=== PATIENT | female | born 1995 | race Caucasian/White ===

== ENCOUNTER 2021-12-29 16:40 | Emergency (ER) | payer OTHER ==
[~2021-12-29] VITALS: Ht 172.7 cm; Wt 65.9 kg
[2021-12-29] MEDS ORDERED: IBUPROFEN 600 MG TABLET PO ONE (20:30)
[2021-12-29 22:12] VITALS: BP 166/90
== END 2021-12-29 22:19 | disposition home or self-care (01) ==
LOC: EMS 16:40
DX: S30.0XXA Contusion of lower back and pelvis, initial encounter (principal); W01.0XXA Fall on same level from slipping, tripping and stumbling without subsequent striking against object, initial encounter; Y93.89 Activity, other specified; Y92.511 Restaurant or cafe as the place of occurrence of the external cause; Y99.0 Civilian activity done for income or pay
CPT/HCPCS: 72170; 99283

== ENCOUNTER 2021-12-31 16:25 | Emergency (ER) | payer OTHER ==
[~2021-12-31] VITALS: Ht 172.7 cm; Wt 65.9 kg
[2021-12-31] MEDS ORDERED: IBUP-1506 PO (16:29)
[2021-12-31] MEDS ORDERED: KETOROLAC TROMETHAMINE 30 MG/ML VIAL IVP ONE (17:15)
[2021-12-31] MEDS ORDERED: HYDROCODONE/ACETAMINOPHEN 5-325 MG TABLET PO ONE (17:15)
[2021-12-31] MEDS ORDERED: METHOCARBAMOL 100 MG/ML 10 ML VIAL IVP ONE (17:15)
[2021-12-31 18:28] VITALS: BP 132/77
[2021-12-31] MEDS ORDERED: IBUP-1554 PO (18:53)
[2021-12-31] MEDS ORDERED: BACL10TA PO (18:53)
[2021-12-31] MEDS ORDERED: HYDR-4723 PO (18:53)
== END 2021-12-31 19:10 | disposition home or self-care (01) ==
LOC: EMS 16:26
DX: S39.012A Strain of muscle, fascia and tendon of lower back, initial encounter (principal); S30.0XXA Contusion of lower back and pelvis, initial encounter; W01.0XXA Fall on same level from slipping, tripping and stumbling without subsequent striking against object, initial encounter; Y93.89 Activity, other specified; Y92.89 Other specified places as the place of occurrence of the external cause; Y99.0 Civilian activity done for income or pay
CPT/HCPCS: 72100; 81025; 96374; 96375; 99284; J1885; J2800

== ENCOUNTER 2022-05-22 19:43 | Emergency (ER) | payer OTHER ==
[~2022-05-22] VITALS: Ht 172.7 cm; Wt 63.6 kg
[~2022-05-22 19:43] MED LIST: BACL10TA PO; HYDR-4723 PO; IBUP-1506 PO; IBUP-1554 PO
[2022-05-22] MEDS ORDERED: GuaiFENesin/D-METHORPHAN [SUGAR-FREE] 200-20MG/10 ML SYRUP UDCUP PO ONE (20:30)
[2022-05-22] MEDS ORDERED: DIPHENOXYLATE/ATROP 2.5-0.025 MG TABLET PO ONE (20:30)
[2022-05-22] MEDS ORDERED: ACETAMINOPHEN 500 MG TABLET PO ONE (20:30)
[2022-05-22] MEDS ORDERED: ONDANSETRON HCL 4 MG TABLET PO ONE (20:30)
[2022-05-22 20:43] LABS: COVID AG,FIA SOURCE NASOPHARYNGEAL
[2022-05-22 21:04] LABS: INFLUENZA TYPE A NEGATIVE FOR TYPE A (NEGATIVE); INFLUENZA TYPE B NEGATIVE FOR TYPE B (NEGATIVE)
[2022-05-22 21:49] VITALS: BP 135/80
[2022-05-22] MEDS ORDERED: GUAIFDM PO (21:50)
[2022-05-22] MEDS ORDERED: ACET-66 PO (21:50)
[2022-05-22] MEDS ORDERED: ONDA-104 PO (21:51)
[2022-05-22] MEDS ORDERED: DIPH-654 PO (21:51)
== END 2022-05-22 22:03 | disposition home or self-care (01) ==
LOC: EMS 19:46
DX: J06.9 Acute upper respiratory infection, unspecified (principal); K52.9 Noninfective gastroenteritis and colitis, unspecified; Z98.890 Other specified postprocedural states; Z20.822 Contact with and (suspected) exposure to COVID-19
CPT/HCPCS: 99284; 87426; 87804; Q0162

== ENCOUNTER 2023-02-13 07:32 | Emergency (ER) | payer OTHER ==
[~2023-02-13] VITALS: Ht 172.7 cm; Wt 65.9 kg
[~2023-02-13 07:32] MED LIST changes: +ACET-66 PO; -BACL10TA PO; +DIPH-654 PO; +GUAIFDM PO; -HYDR-4723 PO; -IBUP-1506 PO; -IBUP-1554 PO; +ONDA-104 PO
[2023-02-13 07:35] VITALS: TEMP 98.4
[2023-02-13] MEDS ORDERED: METOCLOPRAMIDE HCL 5 MG/ML 2 ML VIAL IVP ONE (08:00)
[2023-02-13] MEDS ORDERED: SODIUM CHLORIDE 0.9% 1,000 ML IV ONE (08:00)
[2023-02-13 08:12] LABS: BASOPHILS % (AUTO) 0.9 % (0.0-2.0); EOSINOPHILS % (AUTO) 4.1 % (1.0-6.0); HEMATOCRIT 35.7 % (36-46); HEMOGLOBIN 11.7 g/dL (12.0-16.0); LYMPHOCYTES # (AUTO) 1.4 K/uL (1.0-4.8); LYMPHOCYTES % (AUTO) 26.7 % (22.0-44.0); MEAN CORPUSCULAR HEMOGLOBIN 24.6 pg (26.0-34.0); MEAN CORPUSCULAR HGB CONC 32.9 G/dL (31.0-37.0); MEAN CORPUSCULAR VOLUME 75 fL (80-100); MONOCYTES # (AUTO) 0.4 K/uL (0.1-1.0); MONOCYTES % (AUTO) 7.9 % (2.0-9.0); NEUTROPHILS # (AUTO) 3.1 K/uL (1.8-7.7); NEUTROPHILS % (AUTO) 60.4 % (40.0-70.0); PLATELET COUNT (AUTO) 228 K/uL (150-450); RED BLOOD CELL COUNT(AUTO) 4.77 MIL/uL (4.00-5.20); RED CELL DISTRIBUTION WIDTH 15.2 % (11.5-14.5)
[2023-02-13 08:17] LABS: ANION GAP 13 mmol/L (8-16); CALCIUM, TOTAL 9.2 mg/dL (8.8-10.5); CARBON DIOXIDE 23 mmol/L (22-29); CHLORIDE 102 mmol/L (98-107); CREATININE 0.33 mg/dL (0.60-1.30); GLOMERULAR FILTR. RATE CALC > 60 mL/min (>60); GLUCOSE,RANDOM 111 mg/dL (70-110); POTASSIUM 3.6 mmol/L (3.5-5.1); SODIUM SERUM 138 mmol/L (136-145)
[2023-02-13 08:23] LABS: ALANINE AMINOTRANSFERASE 30 U/L (12-78); ALBUMIN 3.5 g/dL (3.4-5.0); ALKALINE PHOSPHATASE 150 U/L (46-116); ASPARTATE AMINOTRANSFERASE 21 U/L (15-37); BILIRUBIN,TOTAL 0.4 mg/dL (0.1-1.0); TOTAL PROTEIN, SERUM 8.1 g/dL (6.4-8.2)
[2023-02-13] MEDS ORDERED: KETOROLAC TROMETHAMINE 30 MG/ML VIAL IVP ONE (09:45)
[2023-02-13 10:53] VITALS: BP 132/78; PULSE 91; RESP 18
== END 2023-02-13 10:51 | disposition home or self-care (01) ==
LOC: EMS 07:34
DX: K52.9 Noninfective gastroenteritis and colitis, unspecified (principal); R51.9 Headache, unspecified
CPT/HCPCS: 99284; 96374; 96361; 96375; 80053; 84703; 85025; 36415; J1885; J2765; J7030

== ENCOUNTER 2023-04-13 08:23 | Emergency (ER) | payer OTHER ==
[~2023-04-13] VITALS: Ht 172.7 cm; Wt 65.9 kg
[2023-04-13 08:29] VITALS: BP 144/81; PULSE 98; RESP 18; TEMP 99.6
[2023-04-13 10:16] LABS: COVID AG,FIA SOURCE NASAL SWAB
[2023-04-13 10:39] LABS: SARS-COV2 (COVID) ANTIGEN,FIA Negative (Negative)
[2023-04-13 10:40] LABS: INFLUENZA TYPE A NEGATIVE FOR TYPE A (NEGATIVE); INFLUENZA TYPE B NEGATIVE FOR TYPE B (NEGATIVE)
== END 2023-04-13 11:09 | disposition home or self-care (01) ==
LOC: EMS 08:25
DX: J06.9 Acute upper respiratory infection, unspecified (principal); Z20.822 Contact with and (suspected) exposure to COVID-19
CPT/HCPCS: 87804; 99283